=== PATIENT | male | born 2000 | race Caucasian/White ===

== ENCOUNTER 2023-05-06 12:35 | Emergency (ER) | payer SELFPAY ==
[~2023-05-06] VITALS: Ht 177.8 cm; Wt 70.0 kg
[2023-05-06 12:58] LABS: COVID AG,FIA SOURCE NASAL SWAB
[2023-05-06 13:28] LABS: INFLUENZA TYPE A NEGATIVE FOR TYPE A (NEGATIVE); INFLUENZA TYPE B NEGATIVE FOR TYPE B (NEGATIVE)
[2023-05-06 13:30] LABS: RAPID GROUP A STREP NEGATIVE (NEGATIVE)
[2023-05-06 13:32] LABS: SARS-COV2 (COVID) ANTIGEN,FIA Positive (Negative)
[2023-05-06] MEDS ORDERED: SODIUM CHLORIDE 0.9% 1,000 ML IV ONE (14:15)
[2023-05-06] MEDS ORDERED: AMPICILLIN SODIUM/SULBACTAM NA 3 GM in SODIUM CHLORIDE 0.9% 100 ML IV ONE ×2 (14:15→20:15)
[2023-05-06] MEDS ORDERED: DEXAMETHASONE SOD PHOS 4 MG/ML 5 ML VIAL IVP ONE (14:15)
[2023-05-06 14:38] LABS: BASOPHILS % (AUTO) 0.2 % (0.0-2.0); EOSINOPHILS % (AUTO) 0.4 % (1.0-6.0); HEMATOCRIT 43.2 % (41-53); LYMPHOCYTES # (AUTO) 1.3 K/uL (1.0-4.8); LYMPHOCYTES % (AUTO) 4.2 % (22.0-44.0); MEAN CORPUSCULAR HEMOGLOBIN 27.7 pg (26.0-34.0); MEAN CORPUSCULAR HGB CONC 32.4 G/dL (31.0-37.0); MEAN CORPUSCULAR VOLUME 86 fL (80-100); MONOCYTES # (AUTO) 1.8 K/uL (0.1-1.0); NEUTROPHILS # (AUTO) 27.1 K/uL (1.8-7.7); PLATELET COUNT (AUTO) 556 K/uL (150-450); RED BLOOD CELL COUNT(AUTO) 5.06 MIL/uL (4.50-5.90); RED CELL DISTRIBUTION WIDTH 13.6 % (11.5-14.5)
[2023-05-06 14:44] LABS: NEUTROPHILS % (AUTO) 89.2 % (40.0-70.0)
[2023-05-06 14:45] LABS: WHITE BLOOD COUNT (AUTO) 30.4 K/uL (4.5-11.0)
[2023-05-06 14:53] LABS: ANION GAP 17 mmol/L (8-16); CALCIUM, TOTAL 9.5 mg/dL (8.8-10.5); CARBON DIOXIDE 19 mmol/L (22-29); CHLORIDE 98 mmol/L (98-107); CREATININE 0.66 mg/dL (0.60-1.30); GLOMERULAR FILTR. RATE CALC > 60 mL/min (>60); GLUCOSE,RANDOM 96 mg/dL (70-110); POTASSIUM 4.3 mmol/L (3.5-5.1); SODIUM SERUM 134 mmol/L (136-145); UREA NITROGEN, BLOOD 5 mg/dL (7-18)
[2023-05-06 14:59] LABS: ALANINE AMINOTRANSFERASE 13 U/L (12-78); ALKALINE PHOSPHATASE 102 U/L (46-116); ASPARTATE AMINOTRANSFERASE 11 U/L (15-37); BILIRUBIN,TOTAL 0.6 mg/dL (0.1-1.0); TOTAL PROTEIN, SERUM 8.2 g/dL (6.4-8.2)
[2023-05-06] MEDS ORDERED: 0.9% SODIUM CHLORIDE 10 ML SYRINGE IVP PRN (15:00)
[2023-05-06] MEDS ORDERED: SODIUM CHLORIDE 0.9% 2,100 ML IV ONE (15:00)
[2023-05-06 15:27] LABS: INR 1.3 (0.9-1.1); PROTHROMBIN TIME 13.5 SEC (9.4-11.6)
[2023-05-06] MEDS ORDERED: SODIUM CHLORIDE 0.9% 100 ML ONE (15:28)
[2023-05-06] MEDS ORDERED: IOHEXOL 350 MG/ML 100 ML VIAL ONE (15:28)
[2023-05-06 15:29] LABS: LACTIC ACID 1.3 mmol/L (0.4-2.0)
[2023-05-06 15:32] LABS: ALBUMIN 3.8 g/dL (3.4-5.0)
[2023-05-06] MEDS ORDERED: KETOROLAC TROMETHAMINE 30 MG/ML VIAL IVP ONE (20:15)
[2023-05-06 21:30] VITALS: TEMP 99
[2023-05-06 21:58] VITALS: BP 131/66; PULSE 96; RESP 18
== END 2023-05-06 22:22 | disposition short-term general hospital (02) ==
LOC: EMS 12:43
DX: J36 Peritonsillar abscess (principal); F15.90 Other stimulant use, unspecified, uncomplicated; Z20.822 Contact with and (suspected) exposure to COVID-19
CPT/HCPCS: 99291; 96366; 96365; 70491; 71045; 96375; 87426; 80053; 83605; 85025; 85610; 87040; 87430; 87804; 36415; 93005; 84145; J1100; J1885; J0295; Q9967; J7030; J7050; 99285